=== PATIENT | male | born 1935 | race Caucasian/White ===

== ENCOUNTER 2018-09-05 05:15 | Inpatient (IN) | payer OTHER, MEDICARE ==
[~2018-09-05] VITALS: Ht 177.8 cm; Wt 85.3 kg
--- NOTE | ~2018-09-05 | EKG ---
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 [place]: GR : 1935 Requested By: Andrew Bernstein Order Number: [id number] MD: Armando Morales Measurements Intervals [place] Rate: 64 P: 5 MI: 191 QRS: -48 QRSD: 154 T: 121 QT: 448 QTc: 463 Interpretive Statements Atrial-sensed ventricular-paced rhythm No further analysis attempted due to paced rhythm Compared to ECG 09/06/2018 09:04:02 No significant changes Electronically Signed On 09-08-2018 7:59:53 CDT by Armando Morales [email or web address] <ELECTRONICALLY SIGNED> By: Armando Morales MD, [facility] 09/08/18 0759 0 0 Armando Morales MD, [facility] /EPI
--- NOTE | ~2018-09-05 | PATH ---
[facility] [address] [place] [address] PATHOLOGY RPT PROCEDURE Name: NIGEL CHÁVEZ Room #: 204-P [facility] IN M.R.#: [id number] Admission: 09/05/18 Date of : 34 Discharge: 09/08/18 Report #: [id number] Path Case #: [id number] [facility] Accession Number: [id number] . 01 Material submitted: . GALLBLADDER . 01 Clinical history: . Symptomatic cholelithiasis . 02 Diagnosis: Gallbladder "gallbladder cholecystectomy": - Moderate chronic cholecystitis with cholelithiasis. (SHA:yu; 09/08/2018) QMS/09/08/2018 . 02 Electronically signed: . Rishabh Hdz MD, Pathologist NPI- [id number] . 01 Gross description: . The specimen is received in formalin, labeled "Nigel Chávez gallbladder" and consists of a previously opened pink-smith and dusky gallbladder measuring 6.6 cm in length and up to 3.1 cm in diameter. The gallbladder is almost entirely encased with yellow adipose tissue which measures up to 0.5 cm. The mucosa is pink-villarreal with multifocal areas of hemorrhage measuring up to 0.6 cm. No masses or lesions are identified. The wall averages 0.2 cm. Present within the container are multiple easily crushed black calculi measuring up to 2.1 cm. Entry Level Electrician sections are submitted in A1. (SDY; 09/07/2018) SYU/SYU . 02 Pathologist provided ICD-10: K80.10 . 02 CPT . 564218 Specimen Comment: A courtesy copy of this report has been sent to Specimen Comment: [phone], , , . Specimen Comment: Report sent to , CIARAN GARIBAY / FORT[employer]ATO Specimen Comment: A duplicate report has been generated due to demographic updates. Performed at: [address], [place] [id number] MD Neal Castaneda MD Phone: [phone] [address] [address] PATHOLOGY RPT PROCEDURE Name: NIGEL CHÁVEZ Room #: 204-P DIS IN M.R.#: [id number] Admission: 09/05/18 Date of : 34 Discharge: 09/08/18 Report #: [id number] Path Case #: [id number] Performed at: 02 [facility] [address] [facility], [place], [place] [id number] MD Marianne Umana MD Phone: [phone]
--- NOTE | ~2018-09-05 | EKG ---
[address] [employer] [place] [address] ELECTROCARDIOGRAM REPORT Name: NIGEL PÉREZ Room #: 204-P ADM IN M.R.#: [id number] Admission: 09/05/18 Attend Phys: Luis Antonio Carbone MD, Discharge: Date of : 34 Report #: [id number] THIS REPORT FOR: //name// [facility] Test Date: 2018-09-05 Test Time: 06:41:16 Pat Name: NIGEL PÉREZ Department: Room: 204 P Gender: M Administration Clerk: MWACHAI : 1935 Requested By: Luis Antonio Carbone Order Number: [id number] MD: Armando Morales Measurements Intervals [place] Rate: 75 P: [place]: 200 QRS: -46 QRSD: 212 T: 123 QT: 439 QTc: 491 Interpretive Statements Ventricular-paced complexes No further analysis attempted due to paced rhythm Compared to ECG 03/26/2016 07:18:53 No significant change was found Electronically Signed On 09-07-2018 8:53:03 CDT by Armando Morales [email or web address] <ELECTRONICALLY SIGNED> By: Armando Morales MD, [facility] 09/07/18 0853 0 0 Armando Morales MD, [facility] /EPI
--- NOTE | ~2018-09-05 | EKG ---
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 : 1935 Requested By: Luis Antonio Carbone Order Number: [id number] MD: Armando Morales Measurements Intervals [place] Rate: 69 P: 25 ME: 191 QRS: -49 QRSD: 152 T: 116 QT: 442 QTc: 474 Interpretive Statements Ventricular-paced complexes No further analysis attempted due to paced rhythm Compared to ECG 03/26/2016 07:18:53 No significant change was found Electronically Signed On 09-07-2018 9:16:00 CDT by Armando Morales [email or web address] <ELECTRONICALLY SIGNED> By: Armando Morales MD, [facility] [address] 3 3 Armando Morales MD, [facility] /EPI
--- NOTE | ~2018-09-05 | 2DMMODE ---
[facility] [address] [facility] [place] [address] 2 D/M-MODE ECHOCARDIOGRAM Name: NIGEL PÉREZ Room #: 204-P ADM IN M.R.#: [id number] Admission: 09/05/18 Attend Phys: Luis Antonio Carbone, Discharge: Date of : 34 Date of Service: 09/06/18 0817 Report #: [id number] THIS REPORT FOR: //name// APPROVED REPORT Study performed: 09/05/2018 09:24:46 EXAM: Comprehensive 2D, Doppler, and color-flow Echocardiogram Patient Location: Bedside Room #: 204 Status: on-call BSA: 2.03 HR: 72 bpm BP: 147/75 mmHg Rhythm: NSR Other Information Study Quality: Adequate Risk Factors: Cardiac Risk Factors: HTN, Hyperlipidemia Indications Pacemaker Chest Pain Hx CABG x3 (2011) 2D Dimensions IVSd: 12.36 (7-11mm) LVOT Diam: 21.00 (18-24mm) LVDd: 45.21 mm PWd: 14.59 (7-11mm) Ascending Ao: 28.48 (22-36mm) LVDs: 31.59 (25-40mm) Aortic Root: 28.66 mm LV Single Plane 4CH: 68.26 % LV Single Plane 2CH: 60.00 % Biplane EF: 60.3 % Volumes Left Atrial Volume (Systole) Single Plane 4CH: 43.24 mL Single Plane 2CH: 33.47 mL LA ESV Index: 20.00 mL/m2 Aortic Valve AoV Peak Deandre.: 2.03 m/s [facility] [address] [place] [address] 2 D/M-MODE ECHOCARDIOGRAM Name: NIGEL PÉREZ TAMMY Room #: 204-P [facility] IN M.R.#: [id number] Admission: 09/05/18 Attend Phys: Luis Antonio Carbone, Discharge: Date of : 34 Date of Service: 09/06/18 0817 Report #: [id number] AO Peak Gr.: 16.42 mmHg LVOT Max P.72 mmHg LVOT Max V: 1.20 m/s FELIX Vmax: 1.99 cm2 Mitral Valve E/A Ratio: 0.7 MV Decel. Time: 170.89 ms MV E Max Deandre.: 0.88 m/s MV A Deandre.: 1.32 m/s MV PHT: 49.56 ms IVRT: 69.20 ms TDI E/Lateral E': 12.57 E/Medial E': 14.67 Medial E' Deandre.: 0.06 m/s Lateral E' Deandre.: 0.07 m/s Pulmonary Valve PV Peak Deandre.: 1.42 m/s PV Peak Gr.: 8.10 mmHg Pulmonary Vein P Vein S: 0.83 m/s P Vein A: 0.26 m/s P Vein D: 0.45 m/s P Vein A Dur.: 101.5 msec P Vein S/D Ratio: 1.84 Tricuspid Valve TR Peak Deandre.: 2.88 m/s RAP Estimate: 7.00 mmHg TR Peak Gr.: 33.26 mmHg PA Pressure: 40.00 mmHg Left Ventricle The left ventricle is normal size. There is normal LV segmental wall motion. Moderate concentric left ventricular hypertrophy. Left ventricular systolic function is normal. The left ventricular ejection fraction is within the normal range. LVEF is 60-65%. Grade I - abnormal relaxation pattern. Right Ventricle The right ventricle is normal size. The right ventricular systolic function is normal. Atria The left atrium size is normal. The right atrium size is normal. Aortic Valve [address] [address] 2 D/M-MODE ECHOCARDIOGRAM Name: NIGEL PÉREZ Room #: 204-P ADM IN M.R.#: [id number] Admission: 09/05/18 Attend Phys: Luis Antonio Carbone, Discharge: Date of : 34 Date of Service: 09/06/18 0817 Report #: [id number] The aortic valve is normal in structure. Trace aortic regurgitation. There is no aortic valvular stenosis. Mitral Valve There is mitral annular calcification. Mild mitral regurgitation. No evidence of mitral valve stenosis. Tricuspid Valve The tricuspid valve is normal in structure. Moderate tricuspid regurgitation. Pulmonary artery pressure is 40 mmHg. Pulmonic Valve The pulmonary valve is normal in structure. Trace pulmonic regurgitation. Great Vessels The aortic root is normal in size. IVC is normal in size and collapses >50% with inspiration. Pericardium There is no pericardial effusion. <Conclusion> The left ventricle is normal size. Moderate concentric left ventricular hypertrophy. LVEF is 60-65%. Grade I - abnormal relaxation pattern. The right ventricle is normal size. The left atrium size is normal. Trace aortic regurgitation. Mild mitral regurgitation. Moderate tricuspid regurgitation. Pulmonary artery pressure is 40 mmHg. The aortic root is normal in size. There is no pericardial effusion. <ELECTRONICALLY SIGNED> By: Luis Antonio Carbone MD, FACC 09/06/18816 6 6 Luis Antonio Carbone MD, FACC /INF
[~2018-09-05 05:15] MED LIST: ADULT LOW DOSE81 MG PO; ALEVE220 MG PO; AMLODIPINE BESY10 MG PO; APAP500 PO; ASPIR 8181 MG PO; ATORVASTATIN CA10 MG PO; CALCIUM 600 +1 EAC1 PO; CENTRUM SILVER1 EAC4 PO; CENTRUM SILVER1 EAC5 PO; FENOFIBRATE134 MG PO; FENOFIBRATE160 MG PO; GLUCOSAMINE &1 EACH PO; GLUCOSAMINE HC500 MG PO; HYDROCODON-ACE1 EAC7 PO; IRON18 M1 PO; IRON325 PO; LASIX 40 MG TAB40 M2 PO; LIPITOR10 MG PO; NITROGLYCERIN0.4 MG SL; NORVASC10 MG PO; OMEPRAZOLE20 M2 PO; OMEPRAZOLE20 MG PO; PERCOCET PO; POTASSIUM20 PO; PRINZIDE 20-121 EACH PO; Prinzide 20-12.5 Mg PO; RANITIDINE 150150 M1 PO; SENOKOT-S1 TA1 PO; TOPROL XL25 MG PO; UNICOMPLEX M TA1 TA1 PO; VITAMIN B-12250 MCG PO; VITAMIN B-12500 MCG PO; VITAMIN D-32000 UNIT PO; ZESTORETIC 20-1 EAC3 PO; ZESTORETIC 20-1 EACH PO
[2018-09-05 06:26] VITALS: BP 155/72
[2018-09-05 07:39] VITALS: BP 147/75
[2018-09-05] MEDS ORDERED: DICYCLOMINE HCL20 MG PO (07:40)
[2018-09-05 09:41] LABS: AMYLASE 58 U/L (25-115); LIPASE 130 U/L (73-393)
[2018-09-05 09:47] LABS: ALBUMIN 3.5 g/dL (3.4-5.0); ANION GAP 10 mmol/L (7-16); BUN 27 mg/dL (7-18); CALCIUM 9.1 mg/dL (8.5-10.1); CHLORIDE 106 mmol/L (98-107); CO2 23 mmol/L (21-32); CREATININE 1.5 mg/dL (0.7-1.3); GLUCOSE 107 mg/dL (74-106); POTASSIUM 5.3 mmol/L (3.5-5.1); SGOT 12 U/L (15-37); SGPT 25 U/L (30-65); SODIUM 139 mmol/L (136-145); TOTAL BILIRUBIN 0.3 mg/dL (<0.1-1.0); TOTAL PROTEIN 6.7 g/dL (6.4-8.2); TROPONIN-I <0.06 ng/mL (<0.06)
[2018-09-05 11:48] VITALS: BP 152/77
[2018-09-05 16:33] VITALS: BP 139/67
[2018-09-05 19:30] VITALS: BP 147/70
[2018-09-06 00:07] VITALS: BP 121/61
[2018-09-06 03:41] VITALS: BP 116/64
[2018-09-06 07:55] VITALS: BP 150/74
[2018-09-06 11:29] LABS: ALBUMIN 3.4 g/dL (3.4-5.0); CALCIUM 8.9 mg/dL (8.5-10.1); CREATININE 1.5 mg/dL (0.7-1.3); TOTAL BILIRUBIN 0.4 mg/dL (<0.1-1.0); TOTAL PROTEIN 6.6 g/dL (6.4-8.2)
[2018-09-06 11:45] VITALS: BP 138/66
[2018-09-06 16:15] VITALS: BP 138/55
[2018-09-06 19:21] VITALS: BP 151/59
[2018-09-07 04:41] VITALS: BP 151/74
[2018-09-07 07:30] VITALS: BP 167/75
[2018-09-07 13:00] VITALS: BP 146/62
[2018-09-07 16:55] VITALS: BP 177/69
[2018-09-07 20:29] VITALS: BP 158/70
[2018-09-07 23:39] VITALS: BP 133/68
[2018-09-08 03:13] VITALS: BP 139/62
[2018-09-08] MEDS ORDERED: METOPROLOL SUCC25 M1 PO (07:23)
[2018-09-08 07:43] LABS: HEMATOCRIT 30.4 % (42.0-52.0); HEMOGLOBIN 10.7 gm/dL (14.0-18.0); MCH 35.7 pg (26.0-34.0); MCV 102.1 fL (80.0-100.0); RBC 2.98 mil/uL (4.50-6.00); RDW 12.2 % (10.5-14.5); WBC 9.2 thou/uL (4.0-11.0)
[2018-09-08 07:45] VITALS: BP 143/65
[2018-09-08 07:53] LABS: CALCIUM 9.1 mg/dL (8.5-10.1); CREATININE 1.6 mg/dL (0.7-1.3); POTASSIUM 4.8 mmol/L (3.5-5.1)
[2018-09-08] MEDS ORDERED: NORCO 5-325 TA1 EACH PO (07:53)
[2018-09-08 08:28] VITALS: BP 139/62
[2018-09-08] MEDS ORDERED: ZESTORETIC 20-1 EAC3 PO (08:51)
[2018-09-08 10:18] VITALS: BP 139/62
== END 2018-09-08 10:40 | disposition home or self-care (01) | DRG 418 ==
LOC: ICU 05:15 → 2N 06:22 → ENTRNSPT 09-08 10:24 → EDTRNSPTSTS 09-08 10:27 → 2N 09-08 10:40
PROVIDERS: Internal Medicine Cardiovascular Disease; Nurse Practitioner Adult Health
PROC: 0FT44ZZ Resection of Gallbladder, Percutaneous Endoscopic Approach (ICD-10-PCS; principal; 2018-09-07)
DX: K80.00 Calculus of gallbladder with acute cholecystitis without obstruction (principal); N17.9 Acute kidney failure, unspecified; I25.10 Atherosclerotic heart disease of native coronary artery without angina pectoris; Z96.653 Presence of artificial knee joint, bilateral; N18.9 Chronic kidney disease, unspecified; I08.3 Combined rheumatic disorders of mitral, aortic and tricuspid valves; I44.1 Atrioventricular block, second degree; I12.9 Hypertensive chronic kidney disease with stage 1 through stage 4 chronic kidney disease, or unspecified chronic kidney disease; E78.00 Pure hypercholesterolemia, unspecified; K21.9 Gastro-esophageal reflux disease without esophagitis; E78.5 Hyperlipidemia, unspecified; Z95.1 Presence of aortocoronary bypass graft; Z98.42 Cataract extraction status, left eye; Z98.41 Cataract extraction status, right eye; Z95.0 Presence of cardiac pacemaker; Z79.82 Long term (current) use of aspirin; Z79.899 Other long term (current) drug therapy; Z88.5 Allergy status to narcotic agent; Z88.8 Allergy status to other drugs, medicaments and biological substances; Z82.49 Family history of ischemic heart disease and other diseases of the circulatory system
CPT/HCPCS: 10078; 10081; 50010; 50101; 50249; 50411; 50555; 50558; 50962; 51489; 51975; 52265; 52266; 53307; 53310; 54022; 54118; 55245; 55317; 56462; 56525; 56526; 56639; 62110; 62900; 70005

== ENCOUNTER → 2020-08-07 | Outpatient (CLI) | payer OTHER, MEDICARE ==
[~2020-08-07] MED LIST changes: +DICYCLOMINE HCL20 MG PO; +METOPROLOL SUCC25 M1 PO; +NORCO 5-325 TA1 EACH PO
== END ==
LOC: SJCVCIMAG 13:18
PROVIDERS: ATTEND Internal Medicine Cardiovascular Disease
DX: Z45.018 Encounter for adjustment and management of other part of cardiac pacemaker (principal); I25.10 Atherosclerotic heart disease of native coronary artery without angina pectoris; I65.23 Occlusion and stenosis of bilateral carotid arteries; I10 Essential (primary) hypertension; I44.2 Atrioventricular block, complete; E78.00 Pure hypercholesterolemia, unspecified; Z79.899 Other long term (current) drug therapy

== ENCOUNTER 2021-04-13 10:02 | Inpatient (IN) | payer OTHER ==
[~2021-04-13] VITALS: Ht 177.8 cm; Wt 81.6 kg
[2021-04-13 10:04] VITALS: BP 146/65
[2021-04-13 10:41] LABS: ABSOLUTE NEUTROPHILS 11.6 thou/uL (1.4-8.2); BASOPHILS 0.2 % (0.0-2.0); HEMATOCRIT 26.9 % (42.0-52.0); HEMOGLOBIN 8.9 gm/dL (14.0-18.0); LYMPHOCYTES 7.8 % (24.0-44.0); MCH 35.4 pg (26.0-34.0); MCHC 33.1 g/dL (28.0-37.0); MCV 106.9 fL (80.0-100.0); MONOCYTES 9.2 % (1.0-8.0); PLATELET COUNT 257 thou/uL (150-400); POLYS 82.8 % (36.0-66.0); RBC 2.52 mil/uL (4.50-6.00); RDW 14.3 % (10.5-14.5)
--- NOTE | 2021-04-13 10:43 | EKG ---
[place] [address] [address] [place] [address] ELECTROCARDIOGRAM REPORT Name: NIGEL PÉREZ Room #: PRE M.R.#: [id number] Admission: Attend Phys: Discharge: Date of : 34 Report #: [id number] [facility] ED Test Date: 2021-04-13 Test Time: 10:07:02 Pat Name: NIGEL PÉREZ Department: Room: Gender: Client Services Specialist: 193 : 1935 Requested By: Rober Mccarthy Order Number: [id number] MD: Alejo Triana Measurements Intervals [place] Rate: 73 P: GA: 167 QRS: -39 QRSD: 168 T: 121 QT: 453 QTc: 500 Interpretive Statements Atrial-sensed ventricular-paced complexes No further rhythm analysis attempted due to paced rhythm Nonspecific IVCD with LAD LVH with secondary repolarization abnormality Compared to ECG 09/08/2018 06:41:41 Intraventricular conduction delay now present Left ventricular hypertrophy now present Early repolarization now present Electronically Signed On 04-13-2021 10:43:24 CDT by Alejo Triana [email or web address] <ELECTRONICALLY SIGNED> By: Alejo Triana MD, [facility] 04/13/21 1043 1007 1007 Alejo Triana MD, [facility] /EPI
[2021-04-13 10:44] LABS: BE(vivo) -4.4 mmol/L (-2 to +3); HCO3 19.6 mmol/L (22.0-26.0); PCO2 32.3 mmHg (35.0-45.0); PO2 59.5 mmHg (80.0-100.0); pH 7.402 (7.360-7.450); sO2 91.2 % (92.0-98.0)
[2021-04-13 10:46] LABS: CALCIUM 8.9 mg/dL (8.5-10.1); CREATININE 2.4 mg/dL (0.7-1.3); POTASSIUM 4.4 mmol/L (3.5-5.1)
[2021-04-13 10:57] LABS: ALBUMIN 3.5 g/dL (3.4-5.0); DIRECT BILIRUBIN 0.2 mg/dL (<0.1-0.2); PHOSPHORUS 4.4 mg/dL (2.5-4.9); TOTAL BILIRUBIN 0.9 mg/dL (0.2-1.0); TOTAL PROTEIN 7.5 g/dL (6.4-8.2); TROPONIN-I 0.06 ng/mL (<0.06)
[2021-04-13 11:03] LABS: ANISOCYTOSIS 1+; PLATELET ESTIMATE NORMAL
[2021-04-13 11:04] LABS: MACROCYTES 1+
[2021-04-13 11:06] LABS: APTT 29.4 Seconds (24.5-32.8); INR 1.12; PROTIME 12.1 Seconds (10.5-12.1)
[2021-04-13 11:14] LABS: URINE BILIRUBIN NEGATIVE (Negative); URINE BLOOD TRACE (Negative); URINE CLARITY CLEAR; URINE COLOR YELLOW; URINE GLUCOSE-RANDOM* NEGATIVE (Negative); URINE KETONES NEGATIVE (Negative); URINE LEUKOCYTES-REFLEX NEGATIVE (Negative); URINE NITRITE-REFLEX NEGATIVE (Negative); URINE PROTEIN (DIPSTICK) 2+ (Negative); URINE UROBILINOGEN 0.2 E.U./dl (0.2-1.0)
[2021-04-13 11:48] LABS: CASTS None Seen /LPF (None Seen); SQUAMOUS 0-3 Few /LPF (0-3)
[2021-04-13 11:49] LABS: BACTERIA-REFLEX 1-9 Few /HPF (None Seen); CRYSTALS None Seen /LPF (None Seen); URINE RBC 1-2 Rare /HPF (NONE SEEN); URINE WBC-REFLEX 0-5 Rare /HPF (0-5)
[2021-04-13] MEDS ORDERED: FLOMAX0.4 MG PO (13:40)
[2021-04-13] MEDS ORDERED: HYDROCHLOROTHIA25 M1 PO (13:40)
[2021-04-13] MEDS ORDERED: GABAPENTIN100 MG PO (13:41)
[2021-04-13] MEDS ORDERED: PROTONIX40 M4 PO (13:41)
[2021-04-13] MEDS ORDERED: LOPERAMIDE 2 MG2 M1 PO (13:43)
[2021-04-13] MEDS ORDERED: VITAMIN B122500 MCG PO (13:43)
[2021-04-13 19:13] VITALS: BP 173/69
[2021-04-13 19:40] LABS: BE(vivo) -8.7 mmol/L (-2 to +3); HCO3 15.3 mmol/L (22.0-26.0); PCO2 26.5 mmHg (35.0-45.0); pH 7.378 (7.360-7.450); sO2 88.5 % (92.0-98.0)
[2021-04-13 19:43] LABS: PO2 54.5 mmHg (80.0-100.0)
[2021-04-13 21:18] LABS: BE(vivo) -2.9 mmol/L (-2 to +3); HCO3 21.3 mmol/L (22.0-26.0); PCO2 34.1 mmHg (35.0-45.0); PO2 116.8 mmHg (80.0-100.0); pH 7.414 (7.360-7.450); sO2 98.3 % (92.0-98.0)
--- NOTE | 2021-04-13 21:54 | NUR ---
PAULA PÉREZ, SON, CONTACT INFO: [phone]
[2021-04-13 22:12] VITALS: BP 179/70
[2021-04-13 22:15] VITALS: BP 179/70
[2021-04-13 23:51] VITALS: BP 158/57
[2021-04-14] VITALS (25 sets, daily range): BP systolic 160–185; BP diastolic 59–71
--- NOTE | 2021-04-14 02:39 | NUR ---
Pt admitted to ICU on BiPAP at 100%, pt in no distress at that time, respitory rate 14-16 and O2 sats 100-99%, pt denied pain, pt oriented to room, bed, call tyson, and plan of care for this night and he voiced understanding and agreed, admission assessment completed per flow sheets, RT is currently tirtating O2 via biPAP and pt is currently down to 60% with O2 sats 94%, pt sleeping and in no distress, B/P has been elevated and one time does of IV Metoprolol given, last b/p
[2021-04-14 10:38] LABS: HEMATOCRIT 25.4 % (42.0-52.0); HEMOGLOBIN 8.3 gm/dL (14.0-18.0); MCH 35.1 pg (26.0-34.0); MCHC 32.7 g/dL (28.0-37.0); MCV 107.5 fL (80.0-100.0); PLATELET COUNT 292 thou/uL (150-400); RBC 2.37 mil/uL (4.50-6.00); RDW 14.8 % (10.5-14.5); WBC 18.6 thou/uL (4.0-11.0)
[2021-04-14 10:40] LABS: CALCIUM 9.2 mg/dL (8.5-10.1); CREATININE 2.4 mg/dL (0.7-1.3); POTASSIUM 4.3 mmol/L (3.5-5.1)
[2021-04-14 13:29] LABS: ABSOLUTE NEUTROPHILS 16.7 thou/uL (1.4-8.2)
[2021-04-14 13:30] LABS: MACROCYTES 1+
[2021-04-14 14:35] LABS: % SATURATION 13 % (20-39); IRON 19 ug/dL (65-175); TIBC 147 ug/dL (250-450)
--- NOTE | 2021-04-14 18:48 | NUR ---
ASSUMED PATIENT CARE AT 0700. PATIENT ON BIPAP FOR ENTIRE SHIFT. FIO2 TITRATED DOWN TO 60% BY RT. ATTEMPTED SHORT BREAKS FROM BIPAP ON NASAL CANNULA, PATIENT DID NOT TOLERATE. BECAME TACHYPNEIC AND ANXIOUS, DESAT TO LOW 80's. 1.9L URINE OUTPUT WITH LASIX. HYPERTENSIVE ALL DAY. HOME BLOOD PRESSURE MEDS RESTARTED AND PRN MEDICATIONS USED. AT BEDSIDE FOR ENTIRE DAY, UPDATED AND ALL QUESTIONS ANSWERED.
[2021-04-15] VITALS (25 sets, daily range): BP systolic 138–181; BP diastolic 58–73
[2021-04-15 04:35] LABS: HEMATOCRIT 25.1 % (42.0-52.0); HEMOGLOBIN 8.4 gm/dL (14.0-18.0); MCH 35.3 pg (26.0-34.0); MCHC 33.3 g/dL (28.0-37.0); RBC 2.37 mil/uL (4.50-6.00); RDW 14.2 % (10.5-14.5); WBC 18.3 thou/uL (4.0-11.0)
--- NOTE | 2021-04-15 06:00 | NUR ---
PT AWAKE AND ALERT. COOPERATIVE. REMAINS ON BIPAP AT 60 % HYDRAZINE X 1 FOR BP > 160. UO 1000 CC THIS SHIFT. LASIX DAILY. DENIES PAIN EXTREMELY SOA WITH ANY EXERTION/. A VERY DELIGHTFUL GENTLEMAN. NOT PROGRESSING TOWARD GOALS
[2021-04-15 06:18] LABS: CALCIUM 9.1 mg/dL (8.5-10.1); CREATININE 2.4 mg/dL (0.7-1.3); POTASSIUM 3.4 mmol/L (3.5-5.1)
--- NOTE | 2021-04-15 07:05 | NUR ---
PT WANTS TO BE A DNR. NO LIFE SAVING MEASURES. A BEDSIDE. YONATAN ALMOND BLANCHER HAND NOTIFIED. LEFT ORDERS FOR DNR.
--- NOTE | 2021-04-15 11:34 | NUR ---
IN EARLIER.PT WANTS DNR/DNI BUT STILL WANTS TO BE TREATED,NOT READY FOR COMFORT MEASURES.BIPAP CHANGED EARLIER BY R.T. TO OPTIFLOW,70% & 55L. HAS BEEN AT BEDSIDE ALL MORNING. SON & PT'S BROTHER AT BEDSIDE NOW.PT STATES HE IS COMFORTABLE, NO INC IN SOB.REMAINS SOB AT REST.ANXIETY SL LESS.--VW
--- NOTE | 2021-04-15 11:43 | EKG ---
[facility] [place] [address] ELECTROCARDIOGRAM REPORT Name: NIGEL PÉREZ Room #: 238-P ADM IN M.R.#: [id number] Admission: 04/13/21 Attend Phys: Denton Alicea MD Discharge: Date of : 34 Report #: [id number] [facility] Test Date: 2021-04-15 Test Time: 07:33:50 Pat Name: NIGEL PÉREZ Department: Room: 238 P Gender: M Home Health Travel Ot: VALERY : 1935 Requested By: Armando Morales Order Number: [id number] MD: Armando Morales Measurements Intervals [place] Rate: 99 P: 74 TN: 187 QRS: -44 QRSD: 151 T: 117 QT: 399 QTc: 513 Interpretive Statements Atrial-sensed ventricular-paced rhythm No further analysis attempted due to paced rhythm Baseline wander in lead(s) V2 Compared to ECG 04/13/2021 10:07:02 No significant change was found Electronically Signed On 04-15-2021 11:43:15 CDT by Armando Morales [email or web address] <ELECTRONICALLY SIGNED> By: Armando Morales MD, [facility] 04/15/21 1143 0733 0733 Armando Morales MD, [facility] /EPI
[2021-04-16] VITALS (26 sets, daily range): BP systolic 143–176; BP diastolic 54–128
[2021-04-16 03:55] LABS: HEMATOCRIT 23.4 % (42.0-52.0); HEMOGLOBIN 7.9 gm/dL (14.0-18.0); MCH 36.4 pg (26.0-34.0); MCV 106.9 fL (80.0-100.0); RBC 2.19 mil/uL (4.50-6.00); WBC 16.3 thou/uL (4.0-11.0)
[2021-04-16 04:11] LABS: CALCIUM 9.2 mg/dL (8.5-10.1); CREATININE 2.5 mg/dL (0.7-1.3); MAGNESIUM 2.2 mg/dL (1.8-2.4); POTASSIUM 3.4 mmol/L (3.5-5.1)
--- NOTE | 2021-04-16 06:00 | NUR ---
VSS PERIODS OF RESTLESSNESS AND AGITATION. PRN FENTANYL AND ATIVAN REMAINS ON BIPAP AT 60 %. BECOMES VERY DYSPNIC WITH ANY MOVEMENT. 800 CC UO THIS SHIFT. REMAINS A DNR. NOT PROGRESSING TOWARD GOALS.
--- NOTE | 2021-04-16 07:00 | NUR ---
ASSUMMED CARE OF THIS PATIEN FROM THE NIGHT NURSE, CHARO WADSWORTH. POTASSIUM INFUSED
--- NOTE | 2021-04-16 10:24 | 2DMMODE ---
[facility] [address] [place] [address] 2 D/M-MODE ECHOCARDIOGRAM Name: NIGEL PÉREZ Room #: 238-P ADM IN M.R.#: [id number] Admission: 04/13/21 Attend Phys: Denton Alicea MD Discharge: Date of : 34 Report #: [id number] THIS REPORT FOR: cc: Jaspal Daugherty James A. DO Lundgren, Craig H. MD [facility] ~ APPROVED REPORT Study performed: 04/16/2021 08:59:00 EXAM: Comprehensive 2D, Doppler, and color-flow Echocardiogram Patient Location: ICU Room #: 238 Status: routine BSA: 2.00 HR: 98 bpm BP: 154/66 mmHg Rhythm: Pacemaker Other Information Study Quality: Good Indications Dyspnea Pacemaker CAD Hypertension/HDD 2D Dimensions RVDd: 43.43 mm IVSd: 11.43 (7-11mm) LVOT Diam: 22.72 (18-24mm) LVDd: 46.28 mm PWd: 10.80 (7-11mm) Ascending Ao: 25.59 (22-36mm) LVDs: 28.64 (25-40mm) Left Atrium: 51.24 (27-40mm) Aortic Root: 31.96 mm IVC: 28.00 mm Volumes Left Atrial Volume (Systole) Single Plane 4CH: 90.19 mL Single Plane 2CH: 92.32 mL LA ESV Index: 49.00 mL/m2 Aortic Valve AoV Peak Deandre.: 2.24 m/s [facility] [place] [address] 2 D/M-MODE ECHOCARDIOGRAM Name: ELISANIGEL MUNOZ Room #: 238-P [facility] IN M.R.#: [id number] Admission: 04/13/21 Attend Phys: Denton Alicea MD Discharge: Date of : 34 Report #: [id number] Peak Gr.: 20.12 mmHg LVOT Max P.72 mmHg AO Mean Gr.: 11.55 mmHg LVOT Mean P.00 mmHg AO V2 Mean: 1.59 m/s LVOT Max V: 1.14 m/s AO V2 VTI: 44.03 cm LVOT Mean V: 0.78 m/s FELIX (VTI): 2.55 cm2 LVOT V1 VTI: 27.70 cm FELIX Vmax: 2.07 cm2 SV (LVOT): 112.24 mL Pulmonary Valve PV Peak Deandre.: 1.14 m/s PV Peak Gr.: 5.20 mmHg Tricuspid Valve TR Peak Deandre.: 3.22 m/s TR Peak Gr.: 41.70 mmHg PA Pressure: 52.00 mmHg Left Ventricle The left ventricle is normal size. There is normal LV segmental wall motion. There is normal left ventricular wall thickness. The left ventricular systolic function is normal. The left ventricular ejection fraction is within the normal range. LVEF is 60-65%. This study is not technically sufficient to allow evaluation of the LV diastolic function due to atrial fibrillation. Right Ventricle The right ventricle is normal size. The right ventricular systolic function is normal. Atria Left atrium is dilated. The atrial septum is aneurysmal. Right atrium is dilated. Aortic Valve Aortic valve is calcified, trileaflet. Trace aortic regurgitation. Mild aortic stenosis. Mitral Valve There is mitral annular calcification, mild leaflet calcification. Mild mitral regurgitation. No evidence of mitral valve stenosis. Tricuspid Valve The tricuspid valve is normal in structure. There is moderate tricuspid regurgitation.Estimated PAP 50 mmHg. There is moderate pulmonary hypertension. [facility] [address] [place] [address] 2 D/M-MODE ECHOCARDIOGRAM Name: NIGEL PÉREZ Room #: 238-P [facility] IN M.R.#: [id number] Admission: 04/13/21 Attend Phys: Denton Alicea MD Discharge: Date of : 34 Report #: [id number] Pulmonic Valve The pulmonary valve is normal in structure. Mild pulmonic regurgitation. Great Vessels The aortic root is normal in size. IVC is dilated and collapses <50% with inspiration. Pericardium There is no pericardial effusion. <Conclusion> The left ventricular systolic function is normal. There is normal LV segmental wall motion. LVEF is 60-65%. Both atria are dilated. Pacing wires in right heart Aortic valve is calcified, trileaflet. Mild aortic stenosis. Trace aortic regurgitation. There is mitral annular calcification, mild leaflet calcification. Mild mitral regurgitation. There is moderate tricuspid regurgitation.Estimated pulmonary artery pressure of 50 mmHg. There is no pericardial effusion. <ELECTRONICALLY SIGNED> By: Armando Morales MD, FACC 04/16/21 1024 1024 1024 Armando Morales MD, FACC /INF
--- NOTE | 2021-04-16 12:41 | NUR ---
Chart review. Cm visited with at bedside, she was holding johnnie hands to help him relax while on bipap. He lives with his neris at [place], [facility] for family. it[place] of [place], [place]. He independent. manage own medication. drives vehicle. hh in past and outpatient cardiac rehab. " don't think he is going to make it out of here"/ neris. Active listening and support during visit. johnnie requested ice chips. DESTINEY passed on to bedside nurse, he is NPO, nurse will address with pt. and neris. Will continue following as needed for dc needs.
--- NOTE | 2021-04-16 19:04 | NUR ---
PATIENT IS NOT POGRESSING TOWARDS OUTCOME GOALS HE REMAINS CONFUSED AND ATTEMPTING TO PULL OFF BIPAP MASK. MEPIPLEX AT BRIDGE OF NOSE FOR PRESSURE RELIEF. ATIVAN AND FENTANYL GIVEN FOR PAIN AND AIR HUNGER. HYDRALAZINE GIVEN FOR ELEVATED BP WITH RELIEF. BEDSIDE ECHO DONE THIS AM AT THE BEDSIDE.
[2021-04-17] VITALS (23 sets, daily range): BP systolic 102–176; BP diastolic 46–72
[2021-04-17 05:04] LABS: HEMATOCRIT 27.1 % (42.0-52.0); HEMOGLOBIN 8.6 gm/dL (14.0-18.0); MCH 34.5 pg (26.0-34.0); MCHC 31.8 g/dL (28.0-37.0); MCV 108.5 fL (80.0-100.0); RBC 2.5 mil/uL (4.50-6.00); RDW 14.8 % (10.5-14.5); WBC 15.5 thou/uL (4.0-11.0)
[2021-04-17 05:23] LABS: CALCIUM 9.2 mg/dL (8.5-10.1); CREATININE 2.5 mg/dL (0.7-1.3); POTASSIUM 3.9 mmol/L (3.5-5.1)
--- NOTE | 2021-04-17 07:19 | NUR ---
ASSUMMED CARE OF THIS PATIENT FROM THE NIGHT NURSE, SHANNON WADSWORTH. RESTING QUIETLY ON BIPAP AT THE PRESENT TIME.
--- NOTE | 2021-04-17 08:08 | NUR ---
SPOKE WITH DR JOHNSON VIA PHONE CONCERNING POSITIVE SARS COV2 PCR TEST. CALLED BACK, ORDERS NOTED. PATIENT REMAINS IN ISOLATION.
--- NOTE | 2021-04-17 10:22 | NUR ---
SPOKE WITH THE PATIENT'S AND UPDATED HER ON THE POC AND PATIENT'S STATUS WILL CONTINUE TO MONITOR.
--- NOTE | 2021-04-17 14:00 | NUR ---
PULLING OFF BIPAP AND DESATING INTO THE 60'S TO 70'S, PICKING AT O2 SAT MONITOR AND NADEGE IT OFF. REORIENTED AND REASSURANCE GIVEN,
--- NOTE | 2021-04-17 15:30 | NUR ---
VAT CONSULTED FOR CVL PLACEMENT. PETER, RN, LET CORN CROP SUPERVISOR KNOW THAT SHE WOULD CALL WHEN CONSENT COMPLETED, AFTER SPEAKING WITH PT . THIS RN TO ROOM TO SEE IF THIS IS DONE. PETER REPORTED THAT PT WANTS TO WAIT TO SEE IF COVID TEST POSITIVE. WILL BE AVAILABLE.
--- NOTE | 2021-04-17 15:38 | NUR ---
SPOKE TO DESI VIA PHONE CONCERNING INSERTION OF THE PICC LINE. INFORMED THAT THE COVID TEST WAS NOT BACK, WISHES TO SPEAK TO THE OLDER SONS AND SEE WHAT THE COVID TEST SHOWS. IV TEAM AWARE. PATIENT IS UNCOOPERATIVE PULLING OFF O2 SAT, PULLING OUT IV AND SWINGING LEGS OFF THE SIDE OF THE BED AND ATTEMPTING TO GET UP. WILL NOT ASSIST WHEN ATTEMPTING TO REPOSITION IN THE BED.
--- NOTE | 2021-04-17 17:00 | NUR ---
SECOND COVID TEST RESULTED NEGATIVE. DR JOHNSON INFORMED AND ORDERS NOTED. , DESI, INFORMED THAT TEST WAS NEGATIVE AT 1630. CHILDREN IN TO SEE THE PATIENT.
--- NOTE | 2021-04-17 17:36 | NUR ---
VAT CONSULTED FOR CENTRAL LINE PLACEMENT. TIMEOUT WITH ANANTH GREEN. LEFT, 6 FR IJ TL JACC CATHETER PLACED, TRIMMED 25CM WITH 6CM EXTERNAL. ALL LUMENS FLUSH BRISKLY AND RETURN BLOOD. PT COMBATIVE DURING PROCEDURE, ATTEMPTING TO PUSH AWAY WITH HANDS, REQUIRING ANANTH GREEN TO HOLD THEM. PT SETTLED WHEN FINISHED AND FAMILY BACK TO ROOM. AWAITING CXR FOR PLACEMENT CONFIRMATION.
--- NOTE | 2021-04-17 18:45 | NUR ---
RADIOLOGY REPORT READ IJ TIP PROJECTING LATERAL. DECISION MADE TO PLACE PICC INSTEAD, FELT THAT PT WOULD TOLERATE BETTER. RIGHT BRACHIAL 5FR TL PICC PLACED, TRIMMED 45CM WITH 0CM EXTERNAL. AWAITING CXR, UNABLE TO USE 3CG, DUE TO PT PACED RHYTHM. PT TOLERATED WELL.
--- NOTE | 2021-04-17 18:45 | NUR ---
PATIENT NOT PROGRESSING TOWARDS OUTCOME GOALS. FIO2 INCREASED TO 100%. CONFUSED AND FIGHTING WITH STAFF WHEN INSERTING CENTRAL LINE. FENTANYL GIVEN PRIOR TO PROCEDURE. DUE TO INADEQUATE POSITIONING OF CENTRAL LINE. RT UPPER ARM PICC INSERTED BY IV TEAM. AWAITING CXR FOR USAGE. CONTINUES TO PULL AT BIPAP AND DESATS WHEN IT IS OFF.
[2021-04-18] VITALS (9 sets, daily range): BP systolic 101–152; BP diastolic 45–59
[2021-04-18 05:50] LABS: HEMOGLOBIN 8.7 gm/dL (14.0-18.0); MCH 22.9 pg (26.0-34.0); RBC 3.79 mil/uL (4.50-6.00); RDW 21.3 % (10.5-14.5); WBC 20.2 thou/uL (4.0-11.0)
[2021-04-18 05:53] LABS: MCV 76.4 fL (80.0-100.0)
[2021-04-18 06:12] LABS: ALBUMIN 1.4 g/dL (3.4-5.0); CREATININE 1.7 mg/dL (0.7-1.3); MAGNESIUM 1.9 mg/dL (1.8-2.4); PHOSPHORUS 4.1 mg/dL (2.5-4.9); POTASSIUM 4.3 mmol/L (3.5-5.1); TOTAL BILIRUBIN 0.4 mg/dL (0.2-1.0); TOTAL PROTEIN 5.5 g/dL (6.4-8.2)
[2021-04-18 06:13] LABS: CALCIUM 7.1 mg/dL (8.5-10.1)
--- NOTE | 2021-04-18 12:14 | NUR ---
PT REMAINS ON BIPAP TODAY, PT NOT SEEN AWAKEN AT THIS TIME, FAMILY MEMBERS HAVE BEEN BEDSIDE THIS MORNING. HAD OPPORTUNITY TO SPEAK WIH /DAUGHTER REGARDING PLANNING DISCHARGE, FAMILY WISHES TO HOSPICE AT HOME WHEN APPROPERIATE. PRECEDEX REMAINS ON. PT LESS RESPONSIVE TODAY TO STIMULI THAN BEFORE PER FAMILY. PT ALSO NEEDING BAIRHUGGER FOR THERMOREGULATION AT THIS TIME
--- NOTE | 2021-04-18 12:55 | NUR ---
bedside nurse called and asked how many people can bed in room if they with [facility] today? education that needs to go through [facility]. pt and family want him home if possible to him home to pass away. [facility] can transfer on bipap but drips would need to be dc'd, would not be comfortable for that long of trip home. Patient [place] over 80 miles away. Family possible going to with [facility] today?
[2021-04-18 21:06] LABS: HISTOPLASMA MYCELIAL-CF Negative (Neg:<1:2)
== END 2021-04-18 16:30 | DRG 871 ==
LOC: ER 10:02 → ICU 13:55 → EROBS 13:55 → ICU 22:20
PROVIDERS: Emergency Medicine; Internal Medicine; Internal Medicine Pulmonary Disease; Nurse Practitioner Family; Specialist; ADMIT Hospitalist; ATTEND Hospitalist
PROC: 5A09557 Assistance with Respiratory Ventilation, Greater than 96 Consecutive Hours, Continuous Positive Airway Pressure (ICD-10-PCS; principal; 2021-04-13)
PROC: 5A0935A Assistance with Respiratory Ventilation, Less than 24 Consecutive Hours, High Flow/Velocity Cannula (ICD-10-PCS; 2021-04-15)
PROC: 02HV33Z Insertion of Infusion Device into Superior Vena Cava, Percutaneous Approach (ICD-10-PCS; 2021-04-17)
DX: A41.9 Sepsis, unspecified organism (principal); J18.9 Pneumonia, unspecified organism; J96.01 Acute respiratory failure with hypoxia; J81.1 Chronic pulmonary edema; E87.2 Acidosis; E87.0 Hyperosmolality and hypernatremia; N17.9 Acute kidney failure, unspecified; E46 Unspecified protein-calorie malnutrition; I13.0 Hypertensive heart and chronic kidney disease with heart failure and stage 1 through stage 4 chronic kidney disease, or unspecified chronic kidney disease; R65.20 Severe sepsis without septic shock; I50.9 Heart failure, unspecified; Z96.653 Presence of artificial knee joint, bilateral; E78.00 Pure hypercholesterolemia, unspecified; K21.9 Gastro-esophageal reflux disease without esophagitis; D72.825 Bandemia; E78.5 Hyperlipidemia, unspecified; I25.10 Atherosclerotic heart disease of native coronary artery without angina pectoris; I65.21 Occlusion and stenosis of right carotid artery; D64.9 Anemia, unspecified; E87.6 Hypokalemia; I08.3 Combined rheumatic disorders of mitral, aortic and tricuspid valves; Z66 Do not resuscitate; N18.30 Chronic kidney disease, stage 3 unspecified; R53.81 Other malaise; Z51.5 Encounter for palliative care; Z20.822 Contact with and (suspected) exposure to COVID-19; J45.909 Unspecified asthma, uncomplicated; Z95.0 Presence of cardiac pacemaker; Z95.1 Presence of aortocoronary bypass graft; Z98.42 Cataract extraction status, left eye; Z98.41 Cataract extraction status, right eye; Z88.6 Allergy status to analgesic agent; Z88.1 Allergy status to other antibiotic agents; Z85.46 Personal history of malignant neoplasm of prostate; Z92.3 Personal history of irradiation; Z79.82 Long term (current) use of aspirin; Z79.899 Other long term (current) drug therapy; Z68.25 Body mass index [BMI] 25.0-25.9, adult; Z90.49 Acquired absence of other specified parts of digestive tract
CPT/HCPCS: 10203; 27000; 50455